=== PATIENT | female | born 1970 | race Caucasian/White ===

== ENCOUNTER → 2017-08-25 | Outpatient (CLI) | payer OTHER ==
--- NOTE | 2017-08-25 12:03 | WWHP ---
[facility] - HISTORY AND PHYSICAL DATE OF SERVICE: 08/25/2017 CHIEF COMPLAINT: The patient is here for her routine gynecologic exam and mammogram. HPI: This is a 47-year-old, G2, P2 with an LMP of 08/17/2017. The patient has been using condoms and abstinence for control. She is without gynecologic complaints. Her periods are regular every month. She states she is between primary care physicians since Dr. Clemons retired and she is requesting some screening labs. PAST MEDICAL HISTORY: Colon cancer 2002 and history of mildly elevated cholesterol. MEDICATIONS: None. ALLERGIES: No known drug allergies. PAST SURGICAL HISTORY: Colon resection 2002 for colon cancer and she has had multiple colonoscopies since then and her most recent one was in 2016. 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 SOCIAL HISTORY: She denies tobacco and drug use and has about 2 alcohol containing drinks per week. She has been with her fiance since approximately 2012 and lives with him. She works for a [employer] and travels a lot for this. FAMILY HISTORY: Father had atrial fibrillation and grandmother had breast cancer. REVIEW OF SYSTEMS: She has gained about 5 pounds over the last year. She denies respiratory, cardiac or GI problems. She has been feeling more tired than usual. PHYSICAL EXAM: Blood pressure 119/57, height 5 feet 8 inches, weight 186 pounds. BMI 28. Temperature 96.4, pulse 55. This is a well-developed, well-nourished white female who is alert and oriented x3, in no acute distress. HEENT is within normal limits. NECK: Supple without mass or thyromegaly. CHEST AND LUNGS: Clear to auscultation. HEART: Regular rate and rhythm. Breasts are without mass or discharge. Axillary exam is negative for adenopathy. BACK: Negative for CVA tenderness. ABDOMEN: Soft, nontender, without palpable masses. PELVIC EXAM: Normal external genitalia. Cervix and vagina appear normal. There is no evidence of prolapse. The uterus is mid position, nongravid size and nontender. There are no palpable adnexal masses or tenderness. Rectal exam is negative for mass or tenderness and is negative for occult blood. EXTREMITIES: Nontender. IMPRESSION: 1. A 47-year-old gynecologically healthy female with normal gynecologic exam. 2. History of colon cancer with no evidence of recurrence. PLAN: 1. Pap smear was deferred since she had a normal one last year. 2. Self breast examination was discussed. 3. Mammogram will be done today. 4. Screening blood tests will include fasting lipid profile, CBC, comprehensive Chem panel, and TSH. 5. Osteoporosis prevention was discussed. 6. She is declining any other control options at this time, but will let me know if she is interested in any other form of control. 7. She will return in one year. MMODL / IJN: [id number] /
[2017-08-25 12:28] LABS: CH 28.3; CHCM 31.1; HCT 41.6 % (34.0-46.0); HDW 2.57; HGB 12.9 gm/dL (11.4-16.0); Hypochromasia Slight; MCH 28.4 pg (25.0-35.0); MCV 91.5 fL (80.0-100.0); Mean Platelet Volume 7.6; RBC 4.54 m/uL (3.80-5.40); RDW 13.2 % (11.5-15.5); WBC 5.5 k/uL (3.8-10.6)
[2017-08-25 12:34] LABS: ALT 28 U/L (9-52); AST 20 U/L (14-36); Alkaline Phosphatase 62 U/L (38-126); Anion Gap 8 mmol/L; Blood Urea Nitrogen 10 mg/dL (7-17); Calcium 9.4 mg/dL (8.4-10.2); Carbon Dioxide 27 mmol/L (22-30); Chloride 104 mmol/L (98-107); Cholesterol 224 mg/dL (<200); Glucose 77 mg/dL (74-99); HDL Cholesterol 96 mg/dL (40-60); Non-African American GFR(MDRD) >60 (>60 ml/min/1.73 sqM); Potassium 4.2 mmol/L (3.5-5.1); Sodium 139 mmol/L (137-145); Total Bilirubin 0.3 mg/dL (0.2-1.3); Total Protein 6.6 g/dL (6.3-8.2)
--- NOTE | 2017-08-26 14:18 | MM ---
Reason for exam: screening (asymptomatic). Last mammogram was performed 1 year and 8 months ago. History: Patient has history of colon cancer at age 32. Family history of breast cancer in grandmother. Physical Findings: A clinical breast exam by your physician is recommended on an annual basis and results should be correlated with mammographic findings. MG 3D Screening Mammo W/Cad Bilateral CC and MLO view(s) were taken. Prior study comparison: December 16, 2015, bilateral MG screening mammo w CAD. October 30, 2014, bilateral MG screening mammo w CAD. The breast tissue is heterogeneously dense. This may lower the sensitivity of mammography. Finding: There is a 13 x 4 mm equal density (isodense), circumscribed round mass in the posterior middle position of the right breast seen on CC view. New finding since December 16, 2015 and October 30, 2014. ASSESSMENT: Incomplete: need additional imaging evaluation, BI-RAD 0 RECOMMENDATION: Special view mammogram and ultrasound of the right breast. [facility] will attempt to contact patient to return for supplemental views and ultrasound.
== END | disposition home or self-care (01) ==
LOC: WWCWWP 09:52
PROVIDERS: ATTEND Obstetrics & Gynecology
DX: Z12.31 Encounter for screening mammogram for malignant neoplasm of breast (principal); Z00.00 Encounter for general adult medical examination without abnormal findings; R53.83 Other fatigue
CPT/HCPCS: 80061; 80053; 84443; 85027; 77063; 36415; G0202

== ENCOUNTER → 2017-09-10 | Outpatient (CLI) | payer OTHER ==
--- NOTE | 2017-09-10 10:23 | MM ---
Reason for exam: additional evaluation requested from abnormal screening. Last mammogram was performed 1 month ago. History: Patient has history of colon cancer at age 32. Family history of breast cancer in grandmother. Physical Findings: Nurse did not find any significant physical abnormalities on exam. MG 3D Work Up W/Cad RT ML and spot compression CC view(s) were taken of the right breast. Prior study comparison: August 25, 2017, bilateral MG 3d screening mammo w/cad. December 16, 2015, bilateral MG screening mammo w CAD. The breast tissue is heterogeneously dense. This may lower the sensitivity of mammography. Nodular areas persists. Ultrasound is recommended. These results were verbally communicated with the patient and result sheet given to the patient on 09/10/17. ASSESSMENT: Incomplete: need additional imaging evaluation, BI-RAD 0 RECOMMENDATION: Ultrasound of the right breast.
--- NOTE | 2017-09-10 10:26 | USB ---
Reason for exam: additional evaluation requested from abnormal screening. History: Patient has history of colon cancer at age 32. Family history of breast cancer in grandmother. US Breast Workup Limited RT Right breast ultrasound demonstrates a 0.9 x 0.5 x 0.4cm mixed lesion at 10 o'clock, a 0.6 x 0.3 x 0.6cm mixed lesion at 8 o'clock and a 1.5 x 1.4 x 1.4cm solid lesion at 12 o'clock, CC upright. These results were verbally communicated with the patient and result sheet given to the patient on 09/10/17. ASSESSMENT: Suspicious, BI-RAD 4 RECOMMENDATION: Stereotactic core biopsy of the right breast. Called Dr. Crystal with mammographic findings and has scheduled an appointment for the patient for 09/13/17 at 4:[address] Harry. PRELIMINARY REPORT CALLED AND FAXED TO DR. HARRY ON 09/10/17.
== END ==
LOC: RADMAMWWP 07:16
PROVIDERS: ATTEND Obstetrics & Gynecology
DX: R92.8 Other abnormal and inconclusive findings on diagnostic imaging of breast (principal)
CPT/HCPCS: 76642; G0206; G0279

== ENCOUNTER 2017-12-04 13:12 | Emergency (ER) | payer BC, OTHER ==
[2017-12-04 13:17] VITALS: TEMP 97.8
--- NOTE | 2017-12-04 13:50 | ED ---
General Adult HPI - General Chief complaint: Syncope Stated complaint: Syncope Time Seen by Provider: 12/04/17 13:28 Source: patient, family, RN notes reviewed Mode of arrival: ambulatory Limitations: no limitations - History of Present Illness Initial comments: Patient is a pleasant 47-year-old female presenting to the emergency department following syncopal episode. Episode occurred last night while urinating. Patient denies any significant injury. No headache. Patient has had some sinus congestion recently. Patient has had several episodes of intermittent chest discomfort over the past couple of weeks, lasting several minutes. At times there is some radiation towards the back. Discomfort feels either sharp or pressure. At times there is associated dyspnea. No discomfort at this time. No specific discomfort last night. No history of previous syncopal episode. Patient does have a history of frequent travel with work. Patient also adds that her Apple watch recorded her heart rate at 167 last night. - Related Data Home Medications Medication Instructions Recorded Confirmed Dm/Acetaminophen/Doxylamine [Vicks 30 ml PO ONCE PRN 12/04/17 12/04/17 Nyquil Cold & Flu Liquid] Allergies Allergy/AdvReac Type Severity Reaction Status Date / Time No Known Allergies Allergy Verified 12/04/17 13:46 Review of Systems ROS Statement: Those systems with pertinent positive or pertinent negative responses have been documented in the HPI. ROS Other: All systems not noted in ROS Statement are negative. Constitutional: Denies: fever Eyes: Denies: eye pain ENT: Denies: ear pain Respiratory: Denies: cough Cardiovascular: Denies: palpitations Endocrine: Denies: fatigue Gastrointestinal: Denies: abdominal pain Genitourinary: Denies: dysuria Musculoskeletal: Denies: back pain Skin: Denies: rash Neurological: Denies: weakness Past Medical History Past Medical History: Cancer Additional Past Medical History / Comment(s): HX OF COLON CANCER (2002). History of Any Multi-Drug Resistant Organisms: None Reported Past Surgical History: Bowel Resection Past Anesthesia/Blood Transfusion Reactions: No Reported Reaction Past Psychological History: No Psychological Hx Reported Smoking Status: Never smoker Past Alcohol Use History: Occasional Past Drug Use History: None Reported - Past Family History Mother Family Medical History: No Reported History General Exam Limitations: no limitations General appearance: alert, in no apparent distress Head exam: Present: atraumatic Eye exam: Present: normal appearance, PERRL ENT exam: Present: normal oropharynx Neck exam: Present: normal inspection. Absent: meningismus Respiratory exam: Present: normal lung sounds bilaterally Cardiovascular Exam: Present: regular rate, normal rhythm GI/Abdominal exam: Present: soft. Absent: tenderness Extremities exam: Present: normal inspection. Absent: pedal edema, calf tenderness Neurological exam: Present: alert, oriented X3, CN II-XII intact. Absent: motor sensory deficit Expanded Patient oriented to: Present: person, place, time Speech: Present: fluid speech Cranial nerves: EOM's Intact: Normal Sensory exam: Upper Extremity Light Touch: Normal, Lower Extremity Light Touch: Normal Motor strength exam: RUE: 5, LUE: 5, RLE: 5, LLE: 5 Eye Response: (4) open spontaneously Motor Response: (6) obeys commands Verbal Response: (5) oriented Psychiatric exam: Present: normal affect, normal mood Skin exam: Present: normal color Course Vital Signs 12/04/17 13:14 Temperature 97.8 F Pulse Rate 63 Respiratory 20 Rate Blood Pressure 133/73 O2 Sat by Pulse 100 Oximetry - Reevaluation(s) Reevaluation #1: 12/04/17 15:41 Patient reevaluated. Patient and family updated on results and recommendation for admission. Long discussion had with patient and family regarding results as well as recommendation reasons. This includes the fact that all causes of syncope have not been ruled out at this time including patient's chest pain. They are made aware of limitations of testing in the emergency department at this time. They're made aware that heart attack and arrhythmia have not been ruled out at this time. They are specifically made aware that there is concern for arrhythmia. They are recommended admission for monitoring and further evaluation including repeat testing, repeat blood work, echo, cardiology evaluation. Patient does demonstrate medical decision making. They are now having further discussion regarding likely leaving AGAINST MEDICAL ADVICE. EKG Findings - EKG Comments: EKG Findings:: Normal sinus rhythm 63. DE 162. QRS 88. QT 392. QTC 41. Normal axis. Normal QRS. No acute ST change. Medical Decision Making - Lab Data Result diagrams: 12/04/17 14:16 12/04/17 14:16 Lab Results 12/04/17 12/04/17 12/04/17 Range/Units 14:16 14:16 14:16 WBC 5.6 (3.8-10.6) k/uL RBC 4.59 (3.80-5.40) m/uL Hgb 12.4 (11.4-16.0) gm/dL Hct 40.6 (34.0-46.0) % MCV 88.4 (80.0-100.0) fL MCH 27.1 (25.0-35.0) pg MCHC 30.6 L (31.0-37.0) g/dL RDW 13.6 (11.5-15.5) % Plt Count 247 (150-450) k/uL Neutrophils % 62 % Lymphocytes % 26 % Monocytes % 7 % Eosinophils % 2 % Basophils % 0 % Neutrophils # 3.5 (1.3-7.7) k/uL Lymphocytes # 1.5 (1.0-4.8) k/uL Monocytes # 0.4 (0-1.0) k/uL Eosinophils # 0.1 (0-0.7) k/uL Basophils # 0.0 (0-0.2) k/uL PT (9.0-12.0) sec INR (<1.2) APTT (22.0-30.0) sec D-Dimer (<0.60) mg/L FEU Sodium 140 (137-145) mmol/L Potassium 4.2 (3.5-5.1) mmol/L Chloride 104 (98-107) mmol/L Carbon Dioxide 28 (22-30) mmol/L Anion Gap 8 mmol/L BUN 13 (7-17) mg/dL Creatinine 0.70 (0.52-1.04) mg/dL Est GFR (MDRD) Af Amer >60 (>60 ml/min/1.73 sqM) Est GFR (MDRD) Non-Af >60 (>60 ml/min/1.73 sqM) Glucose 85 (74-99) mg/dL Calcium 10.2 (8.4-10.2) mg/dL Magnesium 1.8 (1.6-2.3) mg/dL Total Bilirubin 0.2 (0.2-1.3) mg/dL AST 17 (14-36) U/L ALT 21 (9-52) U/L Alkaline Phosphatase 59 (38-126) U/L Total Creatine Kinase 46 (30-135) U/L CK-MB (CK-2) <0.2 (0.0-2.4) ng/mL CK-MB (CK-2) Rel Index Troponin I <0.012 (0.000-0.034) ng/mL Total Protein 6.6 (6.3-8.2) g/dL Albumin 3.9 (3.5-5.0) g/dL Urine Color Urine Appearance (Clear) Urine pH (5.0-8.0) Ur Specific Rowe (1.001-1.035) Urine Protein (Negative) Urine Glucose (UA) (Negative) Urine Ketones (Negative) Urine Blood (Negative) Urine Nitrite (Negative) Urine Bilirubin (Negative) Urine Urobilinogen (<2.0) mg/dL Ur Leukocyte Esterase (Negative) Urine RBC (0-5) /hpf Urine WBC (0-5) /hpf Ur Squamous Epith Cells (0-4) /hpf Amorphous Sediment (None) /hpf Urine Bacteria (None) /hpf Urine Mucus (None) /hpf 12/04/17 12/04/17 Range/Units 14:16 14:26 WBC (3.8-10.6) k/uL RBC (3.80-5.40) m/uL Hgb (11.4-16.0) gm/dL Hct (34.0-46.0) % MCV (80.0-100.0) fL MCH (25.0-35.0) pg MCHC (31.0-37.0) g/dL RDW (11.5-15.5) % Plt Count (150-450) k/uL Neutrophils % % Lymphocytes % % Monocytes % % Eosinophils % % Basophils % % Neutrophils # (1.3-7.7) k/uL Lymphocytes # (1.0-4.8) k/uL Monocytes # (0-1.0) k/uL Eosinophils # (0-0.7) k/uL Basophils # (0-0.2) k/uL PT 9.8 (9.0-12.0) sec INR 1.0 (<1.2) APTT 21.0 L (22.0-30.0) sec D-Dimer 0.25 (<0.60) mg/L FEU Sodium (137-145) mmol/L Potassium (3.5-5.1) mmol/L Chloride (98-107) mmol/L Carbon Dioxide (22-30) mmol/L Anion Gap mmol/L BUN (7-17) mg/dL Creatinine (0.52-1.04) mg/dL Est GFR (MDRD) Af Amer (>60 ml/min/1.73 sqM) Est GFR (MDRD) Non-Af (>60 ml/min/1.73 sqM) Glucose (74-99) mg/dL Calcium (8.4-10.2) mg/dL Magnesium (1.6-2.3) mg/dL Total Bilirubin (0.2-1.3) mg/dL AST (14-36) U/L ALT (9-52) U/L Alkaline Phosphatase (38-126) U/L Total Creatine Kinase (30-135) U/L CK-MB (CK-2) (0.0-2.4) ng/mL CK-MB (CK-2) Rel Index Troponin I (0.000-0.034) ng/mL Total Protein (6.3-8.2) g/dL Albumin (3.5-5.0) g/dL Urine Color Yellow Urine Appearance Turbid H (Clear) Urine pH 7.0 (5.0-8.0) Ur Specific Rowe 1.012 (1.001-1.035) Urine Protein Negative (Negative) Urine Glucose (UA) Negative (Negative) Urine Ketones Trace H (Negative) Urine Blood Negative (Negative) Urine Nitrite Negative (Negative) Urine Bilirubin Negative (Negative) Urine Urobilinogen <2.0 (<2.0) mg/dL Ur Leukocyte Esterase Small H (Negative) Urine RBC 3 (0-5) /hpf Urine WBC 3 (0-5) /hpf Ur Squamous Epith Cells 4 (0-4) /hpf Amorphous Sediment Rare H (None) /hpf Urine Bacteria Few H (None) /hpf Urine Mucus Rare H (None) /hpf - Radiology Data Radiology results: report reviewed (Computed tomography scan of the brain shows no acute process.), image reviewed (Chest x-ray shows no acute process) Disposition Clinical Impression: Syncope Disposition: Left Against Medical Advice Instructions: Syncope (ED) Additional Instructions: Please follow-up with primary care physician and cardiology on Wednesday. Return for chest pain, difficulty breathing, passing out, worsening or change in symptoms or any other concerns. You are leaving AGAINST MEDICAL ADVICE. Referrals: Itzel Rodriguez MD [STAFF PHYSICIAN] - 1-2 days Aicha Toro MD [STAFF PHYSICIAN] - 1-2 days Susana Wise MD [STAFF PHYSICIAN] - 1-2 days Time of Disposition: 15:50
[2017-12-04 14:30] LABS: Basophils % (A) 0 %; Eosinophils # (A) 0.1 k/uL (0-0.7); Eosinophils % (A) 2 %; HCT 40.6 % (34.0-46.0); HGB 12.4 gm/dL (11.4-16.0); Lymphocytes # (A) 1.5 k/uL (1.0-4.8); Lymphocytes % (A) 26 %; MCH 27.1 pg (25.0-35.0); MCHC 30.6 g/dL (31.0-37.0); MCV 88.4 fL (80.0-100.0); Mean Platelet Volume 7.3; Monocytes # (A) 0.4 k/uL (0-1.0); Monocytes % (A) 7 %; Neutrophils # (A) 3.5 k/uL (1.3-7.7); Neutrophils % (A) 62 %; Platelet Count 247 k/uL (150-450); RBC 4.59 m/uL (3.80-5.40); RDW 13.6 % (11.5-15.5); WBC 5.6 k/uL (3.8-10.6)
[2017-12-04 14:40] LABS: Amorphous Sediment,Urine Rare /hpf; Appearance,Urine Turbid (Clear); Bacteria,Urine Few /hpf; Bilirubin,Urine Negative (Negative); Blood,Urine Negative (Negative); Color,Urine Yellow; Glucose,Urine (UA) Negative (Negative); Ketones,Urine Trace (Negative); Leukocyte Esterase,Urine Small (Negative); Mucus,Urine Rare /hpf; Nitrite,Urine Negative (Negative); Protein,Urine Negative (Negative); RBC,Urine 3 /hpf (0-5); Specific Gravity,Urine 1.012 (1.001-1.035); Squamous Epithelial Cell,Urine 4 /hpf (0-4); Urobilinogen,Urine <2.0 mg/dL (<2.0); WBC,Urine 3 /hpf (0-5)
[2017-12-04 14:45] LABS: ALT 21 U/L (9-52); AST 17 U/L (14-36); Albumin 3.9 g/dL (3.5-5.0); Alkaline Phosphatase 59 U/L (38-126); Anion Gap 8 mmol/L; Blood Urea Nitrogen 13 mg/dL (7-17); Calcium 10.2 mg/dL (8.4-10.2); Carbon Dioxide 28 mmol/L (22-30); Chloride 104 mmol/L (98-107); Glucose 85 mg/dL (74-99); Magnesium 1.8 mg/dL (1.6-2.3); Potassium 4.2 mmol/L (3.5-5.1); Sodium 140 mmol/L (137-145); Total Bilirubin 0.2 mg/dL (0.2-1.3); Total Protein 6.6 g/dL (6.3-8.2)
--- NOTE | 2017-12-04 14:49 | CT ---
EXAMINATION TYPE: CT brain wo con DATE OF EXAM: 12/04/2017 COMPARISON: NONE HISTORY: Syncope CT DLP: 943.80 mGycm. Automated Exposure Control for Dose Reduction was Utilized. TECHNIQUE: CT scan of the head is performed without contrast. FINDINGS: There is no acute intracranial hemorrhage, mass effect, or midline shift identified. The ventricles and sulci are within normal limits in size. Rae-white matter differentiation is maintai kimani. The globes are intact and the visualized sinuses are clear. Patchy soft tissue density bilateral external auditory canals is felt to reflect cerumen. IMPRESSION: No acute intracranial hemorrhage, mass effect, or midline shift is seen.
--- NOTE | 2017-12-04 14:49 | XR ---
EXAMINATION TYPE: XR chest 2V DATE OF EXAM: 12/04/2017 COMPARISON: NONE HISTORY: Syncope and weakness. TECHNIQUE: Frontal and lateral views of the chest are obtained. FINDINGS: There is no focal air space opacity, pleural effusion, or pneumothorax seen. The cardiac silhouette size is within normal limits. The osseous structures are intact. IMPRESSION: No acute cardiopulmonary process.
[2017-12-04 14:50] LABS: Creatine Kinase 46 U/L (30-135)
[2017-12-04 14:51] LABS: D-Dimer 0.25 mg/L FEU (<0.60); Prothrombin Time 9.8 sec (9.0-12.0)
[2017-12-04 15:03] LABS: Creatine Kinase MB <0.2 ng/mL (0.0-2.4); Troponin I <0.012 ng/mL (0.000-0.034)
[2017-12-04 16:04] VITALS: BP 116/56; PULSE 80; RESP 18
== END 2017-12-04 16:04 | disposition left against medical advice (07) ==
LOC: EC 13:12
DX: R55 Syncope and collapse (principal); R09.81 Nasal congestion; R07.89 Other chest pain; M54.9 Dorsalgia, unspecified; R06.00 Dyspnea, unspecified; Z85.038 Personal history of other malignant neoplasm of large intestine; Z90.49 Acquired absence of other specified parts of digestive tract
CPT/HCPCS: 36415; 70450; 71046; 80053; 81001; 82550; 82553; 83735; 84484; 85025; 85379; 85610; 85730; 93005; 99284

== ENCOUNTER → 2018-11-23 | Outpatient (CLI) | payer BC ==
[2018-11-23 08:04] VITALS: BP 130/56; PULSE 70; RESP 18; TEMP 97.8; BMI 28.1
--- NOTE | 2018-11-23 08:48 | P.HPOB ---
History of Present Illness H&P Date: 11/23/18 Chief Complaint: The patient is here for her routine gynecologic exam and mammogram. This is a 48-year-old with an LMP of 11/02/2018. The patient states her menstrual periods seem to be getting slightly closer about every 3 1/2 weeks. She is otherwise without complaints. Review of Systems The patient's weight has been stable over the last year. She denies respiratory , cardiac, or G.I. problems. Past Medical History Past Medical History: Cancer (Colon cancer), Hyperlipidemia (Mild) Additional Past Medical History / Comment(s): HX OF COLON CANCER (2002). Carotid stenosis. 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 History of Any Multi-Drug Resistant Organisms: None Reported Past Surgical History: Bowel Resection Additional Past Surgical History / Comment(s): Colonoscopy 2015(multiple in past ) Past Anesthesia/Blood Transfusion Reactions: No Reported Reaction Past Psychological History: No Psychological Hx Reported Smoking Status: Never smoker Past Alcohol Use History: Occasional (4-6 per week) Past Drug Use History: None Reported Additional History: She is has been with her fianc since 2012 and lives with him. She works for a [employer] and travels frequently. - Past Family History Mother Family Medical History: No Reported History Additional Family Medical History / Comment(s): Grandmother had breast cancer. Father Family Medical History: AFIB Medications and Allergies Home Medications Medication Instructions Recorded Confirmed Type No Known Home Medications 11/23/18 11/23/18 History Allergies Allergy/AdvReac Type Severity Reaction Status Date / Time No Known Allergies Allergy Verified 11/23/18 07:50 Exam Vital Signs Temp Pulse Resp BP Pulse Ox 11/23/18 08:00 97.8 F 70 18 130/56 100 Intake and Output 11/22/18 11/23/18 11/23/18 22:59 06:59 14:59 Other: Weight 83.915 kg Height 5'8" weight 185 pounds, BMI 28.1. This is a well-developed well-nourished white female who is alert and oriented times 3 in no acute distress. HEENT: Within normal limits. NECK: Supple without mass or thyromegaly. There are no carotid bruits auscultated. CHEST AND LUNGS: Clear to auscultation. HEART: Regular rate and rhythm. BREASTS: Are without mass or discharge. AXILLARY EXAM: Negative for adenopathy. BACK: Negative for CVA tenderness. ABDOMEN: Soft, nontender, without palpable masses. PELVIC EXAM: Normal external genitalia. Cervix and vagina appear normal. There is no unusual discharge. There is no evidence of prolapse. The uterus is midposition, nongravid size and nontender. There are no palpable adnexal masses or tenderness. RECTAL EXAM: negative for mass or tenderness and is negative for occult blood. EXTREMITIES: Nontender. IMPRESSION: 1. 48 year old premenopausal female with normal gynecologic exam. 2. History of colon cancer with no evidence of recurrence. 3. Slight increase in menstrual frequency. 4. Previous abnormal right mammogram in 2017 which did require a core biopsy which was benign. PLAN: 1. Pap smear was performed. 2. Self breast awareness was discussed with the patient. 3. Bilateral diagnostic mammogram will be done today. She did not have the follow-up right-sided mammogram 6 months after her biopsy. 4. Osteoporosis prevention was discussed. I have stressed the importance of adequate calcium, vitamin D and regular exercise. Recommended amounts of calcium and vitamin D were also discussed. 5. She will follow-up with her primary care physician for routine blood work including cholesterol testing. 6. She will keep it menstrual calendar and return if she is having menstrual problems. 7. She will return in one year.
--- NOTE | 2018-11-23 09:18 | MM ---
Reason for exam: additional evaluation requested from prior study. Last mammogram was performed 1 year and 2 months ago. History: Patient has history of colon cancer at age 32. Family history of breast cancer in grandmother. Benign MG stereo VAD BX RT of the right breast, September 16, 2017. Physical Findings: Nurse did not find any significant physical abnormalities on exam. MG 3D Diag Mammo W/Cad DAVID Bilateral CC and MLO view(s) were taken. Prior study comparison: September 10, 2017, right breast MG 3d work up w/cad RT. August 25, 2017, bilateral MG 3d screening mammo w/cad. The breast tissue is heterogeneously dense. This may lower the sensitivity of mammography. Previous mammotome biopsy in the right rbeast. Stable nodule right breast. These results were verbally communicated with the patient and result sheet given to the patient on 11/23/18. ASSESSMENT: Benign, BI-RAD 2 RECOMMENDATION: Routine screening mammogram of both breasts in 1 year.
== END | disposition home or self-care (01) ==
LOC: WWCWWP 07:48
PROVIDERS: ATTEND Obstetrics & Gynecology
DX: R92.8 Other abnormal and inconclusive findings on diagnostic imaging of breast (principal)
CPT/HCPCS: 77062; 77066

== ENCOUNTER 2019-09-29 09:04 | Day surgery (SDC) | payer BC ==
[2019-09-28 09:36] VITALS: BMI 29.6
[~2019-09-29 09:04] MED LIST: LACTATED RINGERS 1,000 ML IV SCH
[2019-09-29 09:27] VITALS: TEMP 97.8
[2019-09-29] MEDS ORDERED: LACTATED RINGERS 1,000 ML IV ONE (09:27)
[2019-09-29] MEDS ORDERED: LIDOCAINE 1% 20 ML VIAL (10MG/ML) FOR IV START INTRADERMA ONE (09:27)
[2019-09-29] MEDS ORDERED: LIDOCAINE 1% INJ 10MG/ML (20 ML MDV) ONE (09:57)
[2019-09-29] MEDS ORDERED: PROPOFOL 10 MG/ML 20 ML VIAL IV ONE (09:57)
--- NOTE | 2019-09-29 10:18 | P.PCN ---
Date of Procedure: 09/29/19 Procedure(s) Performed: BRIEF HISTORY: Patient is a 49-year-old pleasant white female scheduled for an elective colonoscopy as a part of surveillance of prior history of colon cancer diagnosed at age 31. Patient underwent left hemicolectomy and has been in remission. Last colonoscopy by Dr. Denton was 3 years ago. She is scheduled for a surveillance colonoscopy today. PROCEDURE PERFORMED: Colonoscopy with snare polyp rectum PREOPERATIVE DIAGNOSIS: history of colon cancer diagnosed at age 31. IV sedation per Anesthesia. PROCEDURE: After informed consent was obtained, the patient, was brought into the endoscopy unit. IV sedation was administered by Anesthesia under continuous monitoring. Digital rectal examination was normal. Initially the Olympus CF-160 flexible video colonoscope was then inserted in the rectum, gradually advanced into the cecum without any difficulty. Careful examination was performed as the scope was gradually being withdrawn. Ileocecal valve and the appendiceal orifice were visualized and appeared normal. Prep was excellent. Mucosa of the cecum, appeared normal. In the ascending colon there was a 1 m flat polyp that was removed by snare polypectomy. Rest of the ascending colon, transverse colon, sigmoid colon, and rectum appeared normal. Anastomosis was located at 25 mm from the anal verge that appeared normal.Retroflexion was performed in the rectum and no lesions were seen. The patient tolerated the procedure well. IMPRESSION: 1 cm flat polyp in ascending colon status post polypectomy. Rest of the colon appeared normal RECOMMENDATIONS: Findings of this examination were discussed with the patient as well as his family her family. She was advised to follow with the biopsy results and have a repeat colonoscopy in 2-3 years biopsy results..
[2019-09-29 10:23] VITALS: RESP 16
[2019-09-29 10:38] VITALS: BP 115/59; PULSE 57
== END 2019-09-29 11:00 | disposition home or self-care (01) ==
LOC: ORWHC2ENDO 09:04
PROVIDERS: ATTEND Internal Medicine Gastroenterology
DX: Z12.11 Encounter for screening for malignant neoplasm of colon (principal); K63.5 Polyp of colon; K52.9 Noninfective gastroenteritis and colitis, unspecified; Z85.038 Personal history of other malignant neoplasm of large intestine; Z90.49 Acquired absence of other specified parts of digestive tract
CPT/HCPCS: 81025; 88305; 45385; J2001; J2704

== ENCOUNTER 2019-10-13 06:27 | Day surgery (SDC) | payer BC ==
[2019-10-05 16:45] VITALS: BMI 28.8
--- NOTE | 2019-10-12 07:32 | P.HPOB ---
History of Present Illness H&P Date: 10/12/19 Chief Complaint: Menorrhagia This patient is a pleasant 49 yr female who was referred to my office by Dr. Westbrook for treatment of menorrhagia. Patient states that for a long period of time she has had regular, long menses that are heavy. 2-3 days of each cycle she bleeds heavy enough to require double protection. Her regular swimming pool servicer is Dr. Crystal but he does not do surgical procedures. Ultrasound evaluation is negative. She is not sexually active. She is requesting endometrial ablation for treatment. Review of Systems Genitourinary: Reports menorrhagia Menstruation: Reports as per HPI, Reports period heavy Past Medical History Past Medical History: Cancer, Hyperlipidemia Additional Past Medical History / Comment(s): HX OF COLON CANCER (2002)no chemo or radiation,no current rx for hyper lipidemia, Carotid stenosis. 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 History of Any Multi-Drug Resistant Organisms: None Reported Past Surgical History: Bowel Resection Additional Past Surgical History / Comment(s): Colonoscopy 2015(multiple in past) Past Anesthesia/Blood Transfusion Reactions: No Reported Reaction Smoking Status: Never smoker - Past Family History Mother Family Medical History: No Reported History Additional Family Medical History / Comment(s): Grandmother had breast cancer. Father Family Medical History: AFIB Medications and Allergies Home Medications Medication Instructions Recorded Confirmed Type Ascorbic Acid [Vitamin C] 500 mg PO DAILY 10/05/19 10/05/19 History Aspirin 81 mg PO DAILY 10/05/19 10/05/19 History Cyanocobalamin [Vitamin B-12] 500 mcg PO DAILY 10/05/19 10/05/19 History Vitamin E (Dl,Tocopheryl Acet) 400 unit PO DAILY 10/05/19 10/05/19 History [Vitamin E] Allergies Allergy/AdvReac Type Severity Reaction Status Date / Time No Known Allergies Allergy Verified 10/05/19 16:15 Exam - OBG Physical Exam Abdomen: bowel sounds normal, no diffuse tenderness, no bruit present, no guarding noted, no hepatomegaly, no splenomegaly, no mass Vulva: both: normal Vagina: normal moisture, no discharge Cervix: no lesion, no discharge Uterus: normal size, normal contour Adnexa: both: normal Results Transvaginal ultrasound on 10/02 was normal. Assessment and Plan Assessment: This is a pleasant 49 yr old female with longstanding menorrhagia and negative evaluation requesting endometrial ablation. Plan is hysteroscopy, D&C, and Novasure endometrial ablation. I have had a long discussion with Inez in regards to this surgery and risks: infection, bleeding, possible uterine perforation and/or thermal injury. All of her questions were answered and a written consent obtained. (1) Menorrhagia with regular cycle Status: Chronic Code(s): N92.0 - EXCESSIVE AND FREQUENT MENSTRUATION WITH REGULAR CYCLE SNOMED Code(s): 103591049
[~2019-10-13 06:27] MED LIST changes: +DEXAMETHASONE SOD PHOSPHATE 10 MG/ML 1 ML VIAL IV ONE; +HYDROmorphone 0.5 MG/0.5 ML SYRINGE IVP PRN; +MIDAZOLAM 2 MG/2 ML VIAL IV PRN; +ONDANSETRON 4 MG/2 ML VIAL IVP ONE; +Pre Op ABX Message 1 EACH MISC MISCELLANE ONE; +SCOPOLAMINE 1.5MG/72HR PATCH TRANSDERM ONE
[2019-10-13] MEDS ORDERED: LIDOCAINE 1% 20 ML VIAL (10MG/ML) FOR IV START INTRADERMA ONE (06:50)
[2019-10-13] MEDS ORDERED: LIDOCAINE 1% INJ 10MG/ML (20 ML MDV) ONE (07:18)
[2019-10-13] MEDS ORDERED: PROPOFOL 10 MG/ML 20 ML VIAL IV ONE (07:18)
[2019-10-13] MEDS ORDERED: fentaNYL (PF) 50 MCG/ML 2 ML AMP ONE (07:18)
[2019-10-13] MEDS ORDERED: MIDAZOLAM 2 MG/2 ML VIAL ONE (07:18)
[2019-10-13] MEDS ORDERED: KETOROLAC 30 MG/ML 1 ML VIAL ONE (07:18)
[2019-10-13 08:01] VITALS: TEMP 96.8
--- NOTE | 2019-10-13 08:01 | P.OP ---
Date of Procedure: 10/13/19 Preoperative Diagnosis: Menorrhagia Postoperative Diagnosis: Same Procedure(s) Performed: #1: Hysteroscopy. #2: Dilation and curettage. #3: NovaSure endometrial ablation Anesthesia: MAC Surgeon: Felice Good Estimated Blood Loss (ml): 5 Urine output (ml): 20 Pathology: other (Endometrial curettings) Condition: stable Disposition: PACU Indications for Procedure: Please see dictated H&P for intimate details of this patient's admission. Brief summary this is a pleasant 49-year-old multigravida patient with long-standing menorrhagia who is requesting NovaSure endometrial ablation for treatment. Patient I discussed the surgery and risks including risks of infection, bleeding, possible uterine perforation, and/or thermal injury. All the patient's questions are answered written consent is obtained. Operative Findings: This patient normal. Endometrial cavity Description of Procedure: This patient is taken to the operating room where she is laid in the supine position. She subsequently undergoes general mask anesthesia without incident. With an adequate level of anesthesia she's placed in the dorsal lithotomy position. She has a vaginal perineal prep and drape. Weighted speculum was placed in the posterior vagina and the anterior lip of the cervix was grabbed with an Allis clamp. The bladder is drained for 20 mL of clear urine. The uterus is then sounded to 9 cm. Gentle dilation is then done to allow the hysteroscope easily uterine cavity. Using saline solution hysteroscopy is performed and the uterine cavity appears normal was measured a length of 6.0 cm. Hysteroscope was then removed. Cervix dilated gently more to allow a small curette easily uterine cavity. A gentle but thorough 4 quadrant curettage is then done. With this done the NovaSure device is then opened appears to be intact. It is set at a length of 6.0 cm is then seated in place and opens up to a width of 4.5 cm. It passes the cavity integrity test is then enabled at 149 W setting for 137 seconds. With this done the NovaSure device is then removed it appears to be intact. Hysteroscopy again is performed uterine cavity appears to be completely ablated up to the endocervix. With this done the procedure is ended. The Allis clamp and weighted speculums were removed. All counts are correct 3. There are no complications. Patient is awakened from anesthesia and taken recovery in satisfactory condition.
[2019-10-13 08:36] VITALS: RESP 16
[2019-10-13 08:50] VITALS: BP 135/81; PULSE 56
== END 2019-10-13 09:06 | disposition home or self-care (01) ==
LOC: OR 06:27
PROVIDERS: ATTEND Obstetrics & Gynecology
DX: N92.0 Excessive and frequent menstruation with regular cycle (principal); E78.5 Hyperlipidemia, unspecified; I65.29 Occlusion and stenosis of unspecified carotid artery; Z85.038 Personal history of other malignant neoplasm of large intestine; Z79.82 Long term (current) use of aspirin; Z90.49 Acquired absence of other specified parts of digestive tract; Z80.3 Family history of malignant neoplasm of breast; Z82.49 Family history of ischemic heart disease and other diseases of the circulatory system
CPT/HCPCS: 81025; 58563; J2250; J1100; J2405; J2001; J3010; J1885; J2704; 88305

== ENCOUNTER → 2020-04-24 | Outpatient (CLI) | payer OTHER ==
[2020-04-24 10:57] VITALS: BP 102/60; PULSE 51; RESP 16; TEMP 98
--- NOTE | 2020-04-24 11:53 | P.HPOB ---
History of Present Illness H&P Date: 04/24/20 Chief Complaint: The patient is here for her routine gynecologic exam and ma mmogram. This is a 48-year-old with an LMP of October 2019. She is status post endometrial ablation in October 2019 and has been amenorrheic since then. She denies any hot flashes. She is without gynecologic complaints. Pap smear done on 11/23/2018 which showed ASCUS and had negative high-risk HPV testing. Review of Systems The patient has lost 23 pounds over the last year. She has been working hard to lose weight and has done this with diet and exercise. She denies respiratory, cardiac, or G.I. problems. Past Medical History Past Medical History: Cancer, Hyperlipidemia Additional Past Medical History / Comment(s): HX OF COLON CANCER (2002). Carotid stenosis. 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 History of Any Multi-Drug Resistant Organisms: None Reported Past Surgical History: Bowel Resection, Uterine Ablation Additional Past Surgical History / Comment(s): Colonoscopy 2015(multiple in past). Endometrial ablation in 2019. Past Anesthesia/Blood Transfusion Reactions: No Reported Reaction Past Psychological History: No Psychological Hx Reported Smoking Status: Never smoker Past Alcohol Use History: Occasional (1-2 per week) Past Drug Use History: None Reported Additional History: She is . And has been with her boyfriend since 2012. They live together. She currently is unemployed and previously worked for a [employer]. - Past Family History Mother Family Medical History: No Reported History Additional Family Medical History / Comment(s): Grandmother had breast cancer. Father Family Medical History: AFIB Medications and Allergies Home Medications Medication Instructions Recorded Confirmed Type Vit C/Ascorb Sod/Multivit-Min 1,000 mg PO DAILY 04/24/20 04/24/20 History [Emergen-C 500 mg Chewable Tab] Allergies Allergy/AdvReac Type Severity Reaction Status Date / Time No Known Allergies Allergy Verified 04/24/20 10:48 Exam Vital Signs Temp Pulse Resp BP Pulse Ox 04/24/20 10:54 98.0 F 51 L 16 102/60 98 Intake and Output 04/23/20 04/24/20 04/24/20 22:59 06:59 14:59 Other: Weight 73.482 kg Height 5 feet 8 inches, weight 162 pounds, BMI 24.6. This is a well-developed well-nourished white, very chaudhry female who is alert and oriented times 3 in no acute distress. HEENT: Within normal limits. NECK: Supple without mass or thyromegaly. CHEST AND LUNGS: Clear to auscultation. HEART: Regular rate and rhythm. BREASTS: Are without mass or discharge. There is a benign-appearing mole on the right areola measuring approximately 3 mm with regular borders. The patient states it is been there for many years and has not changed. AXILLARY EXAM: Negative for adenopathy. BACK: Negative for CVA tenderness. ABDOMEN: Soft, nontender, without palpable masses. PELVIC EXAM: Normal external genitalia. Cervix and vagina appear normal. There is no unusual discharge. There is no evidence of prolapse. The uterus is midposition, nongravid size and nontender. There are no palpable adnexal masses or tenderness. RECTAL EXAM: Rectovaginal exam is negative for mass or tenderness and is negative for occult blood. EXTREMITIES: Nontender. IMPRESSION: 1. 50-year-old female with normal gynecologic exam. 2. Amenorrhea following endometrial ablation in October 2019. 3. Previous ASCUS Pap smear on 11/23/2018 with negative high-risk HPV testing. PLAN: 1. Pap smear was deferred. Co-testing will be performed in one year. 2. Self breast awareness was discussed with the patient. She was instructed to watch the mole on the right areola or any changes. She was instructed to call if there are changes. 3. Screening mammogram will be done today. 4. Osteoporosis prevention was discussed. I have stressed the importance of adequate calcium, vitamin D and regular exercise. Recommended amounts of calcium and vitamin D were also discussed. 5. She was advised to return in one year for her annual well woman exam.
--- NOTE | 2020-04-26 08:59 | MM ---
Reason for exam: screening (asymptomatic). Last mammogram was performed 1 year and 5 months ago. History: Patient has history of colon cancer at age 32. Family history of breast cancer in grandmother. Benign MG stereo VAD BX RT of the right breast, September 16, 2017. Physical Findings: A clinical breast exam by your physician is recommended on an annual basis and results should be correlated with mammographic findings. MG 3D Screening Mammo W/Cad Bilateral CC and MLO view(s) were taken. Prior study comparison: November 23, 2018, bilateral MG 3d diag mammo w/cad DAVID. September 10, 2017, right breast MG 3d work up w/cad RT. The breast tissue is heterogeneously dense. This may lower the sensitivity of mammography. Previous mammotome biopsy in the right breast. There is chronic nodularity in the right breast. No significant changes when compared with prior studies. ASSESSMENT: Benign, BI-RAD 2 RECOMMENDATION: Routine screening mammogram of both breasts in 1 year.
== END | disposition home or self-care (01) ==
LOC: WWCWWP 10:37
PROVIDERS: ATTEND Obstetrics & Gynecology
DX: Z12.31 Encounter for screening mammogram for malignant neoplasm of breast (principal)
CPT/HCPCS: 77063; 77067

== ENCOUNTER → 2021-07-01 | Outpatient (CLI) | payer BC ==
[2021-07-01 16:31] VITALS: BP 117/61; PULSE 52; RESP 12; TEMP 98
--- NOTE | 2021-07-01 17:18 | P.HPOB ---
History of Present Illness H&P Date: 07/01/21 Chief Complaint: The patient is here for her routine gynecologic exam and ma mmogram. This is a 51-year-old with an LMP of October 2019. The patient is status post endometrial ablation in October 2019 and she has been amenorrheic since then. She recently has developed hot flashes about 1-2 months ago. She states the hot flashes are occurring during the day and at night. The hot flashes at night seem to be improving. She is otherwise without complaints. Her last Pap smear done on 11/23/2018 showed ASCUS with negative high-risk HPV testing. Review of Systems The patient has gained 13 pounds over the last year. This was after she had lost 23 pounds previous year. She denies respiratory, cardiac, or G.I. problems. Past Medical History Past Medical History: Cancer, Hyperlipidemia Additional Past Medical History / Comment(s): HX OF COLON CANCER (2002). Carotid stenosis. 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 History of Any Multi-Drug Resistant Organisms: None Reported Past Surgical History: Bowel Resection, Uterine Ablation Additional Past Surgical History / Comment(s): Colonoscopy 2018(next after 3yr). Endometrial ablation in 2019. Past Anesthesia/Blood Transfusion Reactions: No Reported Reaction Past Psychological History: No Psychological Hx Reported Smoking Status: Never smoker Past Alcohol Use History: Occasional (0-4 per week) Past Drug Use History: None Reported Additional History: She is . She has been with her boyfriend since 2012 and they live together. 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 - Past Family History Mother Family Medical History: No Reported History Additional Family Medical History / Comment(s): Grandmother had breast cancer. Father Family Medical History: AFIB Medications and Allergies Home Medications Medication Instructions Recorded Confirmed Type Vit C/Ascorb Sod/Multivit-Min 1,000 mg PO DAILY 04/24/20 07/01/21 History [Emergen-C 500 mg Chewable Tab] Allergies Allergy/AdvReac Type Severity Reaction Status Date / Time No Known Allergies Allergy Verified 07/01/21 15:35 Exam Vital Signs Temp Pulse Resp BP Pulse Ox 07/01/21 15:36 98.0 F 52 L 12 117/61 98 Intake and Output 07/01/21 07/01/21 07/01/21 06:59 14:59 22:59 Other: Weight 79.379 kg Height 5 feet 8 inches, weight 175 pounds, BMI 26.6. This is a well-developed well-nourished white female who is alert and oriented times 3 in no acute distress. HEENT: Within normal limits. NECK: Supple without mass or thyromegaly. CHEST AND LUNGS: Clear to auscultation. HEART: Regular rate and rhythm. BREASTS: Are without mass or discharge. AXILLARY EXAM: Negative for adenopathy. BACK: Negative for CVA tenderness. ABDOMEN: Soft, nontender, without palpable masses. PELVIC EXAM: Normal external genitalia. Cervix and vagina appear normal. There is no significant genital atrophy noted. There is no unusual discharge. There is no evidence of prolapse. The uterus is midposition, nongravid size and nontender. There are no palpable adnexal masses or tenderness. RECTAL EXAM: Rectovaginal exam is negative for mass or tenderness and is negative for occult blood. EXTREMITIES: Nontender. IMPRESSION: 1. 51-year-old perimenopausal female who is status post endometrial ablation with resulting amenorrhea, with normal gynecologic exam. 2. Mild vasomotor symptoms related to early menopausal change. 3. Prior Pap smear in 2019 showing ASCUS with negative high-risk HPV testing. 4. History of colon cancer. PLAN: 1. Pap smear cotest was performed. 2. Self breast awareness was discussed with the patient. We have also discussed symptoms associated with inflammatory breast cancer. 3. Screening mammogram was done today. 4. Osteoporosis prevention was discussed. I have stressed the importance of adequate calcium, vitamin D and regular exercise. Recommended amounts of calcium and vitamin D were also discussed. 5. We have had a discussion regarding premenopausal symptoms and changes that can occur. Suggestions were given regarding her vasomotor symptoms. She was instructed to call if they become more severe if she thinks intervention is necessary. 6. She was advised to return in one year for her annual well woman exam and as needed.
--- NOTE | 2021-07-03 13:32 | MM ---
Reason for exam: screening (asymptomatic). Last mammogram was performed 1 year and 2 months ago. History: Patient is postmenopausal and has history of colon cancer at age 32. Family history of breast cancer in grandmother. Benign MG stereo VAD BX RT of the right breast, September 16, 2017. Physical Findings: A clinical breast exam by your physician is recommended on an annual basis and results should be correlated with mammographic findings. MG 3D Screening Mammo W/Cad Bilateral CC and MLO view(s) were taken. Prior study comparison: April 24, 2020, bilateral MG 3d screening mammo w/cad. November 23, 2018, bilateral MG 3d diag mammo w/cad DAVID. The breast tissue is heterogeneously dense. This may lower the sensitivity of mammography. Previous mammotome biopsy in the right breast. There is chronic nodularity in the right breast. No significant changes when compared with prior studies. ASSESSMENT: Benign, BI-RAD 2 RECOMMENDATION: Routine screening mammogram of both breasts in 1 year.
== END | disposition home or self-care (01) ==
LOC: WWCWWP 15:11
PROVIDERS: ATTEND Obstetrics & Gynecology
DX: Z12.31 Encounter for screening mammogram for malignant neoplasm of breast (principal); N91.2 Amenorrhea, unspecified; Z85.038 Personal history of other malignant neoplasm of large intestine
CPT/HCPCS: 77063; 77067

== ENCOUNTER → 2022-07-21 | Outpatient (CLI) | payer OTHER ==
[2022-07-21 08:12] VITALS: BP 102/59; PULSE 96; RESP 17; TEMP 97.5
--- NOTE | 2022-07-21 08:47 | P.HPOB ---
History of Present Illness H&P Date: 07/21/22 Chief Complaint: The patient is here for her routine gynecologic exam and ma mmogram. This is a 52-year-old with an LMP of October 2019. She has been amenorrheic since her endometrial ablation in October 2019. She has experienced more hot flashes this past year and they were bad at times. She states she has taken a probiotic which seems to help with the hot flashes. She is otherwise without gynecologic complaints. Review of Systems The patient has gained 7 pounds over the last year. She denies respiratory, cardiac, or G.I. problems. Past Medical History Past Medical History: Cancer, Hyperlipidemia Additional Past Medical History / Comment(s): HX OF COLON CANCER (2002). Carotid stenosis. 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 History of Any Multi-Drug Resistant Organisms: None Reported Past Surgical History: Bowel Resection, Uterine Ablation Additional Past Surgical History / Comment(s): Colonoscopy 2018(next after 3yr). Endometrial ablation in 2019. Past Anesthesia/Blood Transfusion Reactions: No Reported Reaction Past Psychological History: No Psychological Hx Reported Smoking Status: Never smoker Past Alcohol Use History: Occasional (4 per week) Past Drug Use History: None Reported Additional History: She is . She has been with her boyfriend since 2012 and they live together. She has a new job with a [employer] and travels a lot. She is currently not very satisfied with her job. - Past Family History Mother Family Medical History: No Reported History Additional Family Medical History / Comment(s): Grandmother had breast cancer. Father Family Medical History: AFIB Medications and Allergies Home Medications Medication Instructions Recorded Confirmed Type Vit C/Ascorb Sod/Multivit-Min 1,000 mg PO DAILY 04/24/20 07/21/22 History [Emergen-C 500 mg Chewable Tab] Aspirin [Children's Aspirin] 81 mg PO DAILY 07/21/22 07/21/22 History L.acidoph,Paracasei, B.lactis 2 cap PO DAILY 07/21/22 07/21/22 History [Probiotic] Omeprazole [PriLOSEC] 10 mg PO DIRECTED PRN 07/21/22 07/21/22 History Allergies Allergy/AdvReac Type Severity Reaction Status Date / Time No Known Allergies Allergy Verified 07/21/22 08:06 Exam Vital Signs Temp Pulse Resp BP Pulse Ox 07/21/22 08:09 97.5 F L 96 17 102/59 96 Intake and Output 07/20/22 07/21/22 07/21/22 22:59 06:59 14:59 Other: Weight 82.554 kg Height 5 feet 8 inches, weight 182 pounds, BMI 27.7. This is a well-developed well-nourished white female who is alert and oriented times 3 in no acute distress. HEENT: Within normal limits. NECK: Supple without mass or thyromegaly. CHEST AND LUNGS: Clear to auscultation. HEART: Regular rate and rhythm. BREASTS: Are without mass or discharge. There is a benign-appearing mole on the right areola at approximately the 2 o'clock position and it measures approximately 3 mm. The patient states it has been there for many years and has not changed. AXILLARY EXAM: Negative for adenopathy. BACK: Negative for CVA tenderness. ABDOMEN: Soft, nontender, without palpable masses. PELVIC EXAM: Normal external genitalia. Cervix and vagina appear normal. There is no unusual discharge. There is no evidence of prolapse. The uterus is midposition, nongravid size and nontender. There are no palpable adnexal masses or tenderness. RECTAL EXAM: Rectovaginal exam is negative for mass or tenderness and is negative for occult blood. EXTREMITIES: Nontender. IMPRESSION: 1. 52-year-old premenopausal female with amenorrhea since her endometrial ablation in October 2019. Normal gynecologic exam. 2. Moderate vasomotor symptoms which the patient states has improved with probiotics. 3. Previous Pap smear showing ASCUS with negative high-risk HPV testing in 2020 and 2018. 4. History of colon cancer. PLAN: 1. Pap smear, test was performed. 2. Self breast awareness was discussed with the patient. We have also discussed symptoms associated with inflammatory breast cancer. 3. Screening mammogram will be done today. 4. Osteoporosis prevention was discussed. I have stressed the importance of adequate calcium, vitamin D and regular exercise. Recommended amounts of calcium and vitamin D were also discussed. 5. She is due for a colonoscopy since she has them done every 3 years as of her colon cancer. She will schedule this with Dr. Euceda, her GI doctor who has done colonoscopies on her. 6. She has not received a Covid vaccination. I recommended that she look into getting vaccinated. She states she has had a Covid in the past and is declining vaccination. 7. She was advised to return in one year for her annual well woman exam.
--- NOTE | 2022-07-22 20:36 | MM ---
Reason for Exam: Screening (asymptomatic). Last mammogram was performed 1 year(s) and 1 month(s) ago. Patient History: Menarche at age 14. First Full-Term at age 31. Postmenopausal. Colorectal cancer, age 32. 09/16/2017, Benign Core Biopsy on the right side. Maternal grandmother had breast cancer. Risk Values: Chelsey 5 year model risk: 1.3%. NCI Lifetime model risk: 11.6%. Prior Study Comparison: 11/23/2018 Bilateral Diagnostic Mammogram, [facility]. 04/24/2020 Bilateral Screening Mammogram, [facility]. 07/01/2021 Bilateral Screening Mammogram, [facility]. Tissue Density: The breast tissue is heterogeneously dense. This may lower the sensitivity of mammography. Findings: Analyzed By CAD. Microclip associated with the dominant chronic nodule 12:00 posterior right breast. Just below, centrally posterior right MLO view, there is a nodular area of asymmetric density which incompletely disperses on 3-D images and appears more defined. Further evaluation recommended. Otherwise, no significant change. Overall Assessment: Incomplete: need additional imaging evaluation, BI-RAD 0 Management: Special View Mammogram of the right breast. To include spot 3-D MLO and 3-D lateral views. Additional 3-D CC rolled view. Targeted ultrasound of any persisting abnormality. [facility] will attempt to contact patient to return for supplemental views and ultrasound if indicated. Electronically signed and approved by: Ghislaine Alberto M.D. Radiologist
== END | disposition home or self-care (01) ==
LOC: WWCWWP 07:59
PROVIDERS: ATTEND Obstetrics & Gynecology
DX: Z12.31 Encounter for screening mammogram for malignant neoplasm of breast (principal)
CPT/HCPCS: 77063; 77067

== ENCOUNTER → 2022-07-31 | Outpatient (CLI) | payer OTHER ==
--- NOTE | 2022-07-31 14:11 | MM ---
Reason for Exam: Additional evaluation requested from abnormal screening. Last screening mammogram was performed less than 1 month ago. Patient History: Menarche at age 14. First Full-Term at age 31. Postmenopausal. Patient has history of breast feeding. Colorectal cancer, age 32. 09/16/2017, Benign Core Biopsy on the right side. Maternal grandmother had breast cancer, age 73. Risk Values: Chelsey 5 year model risk: 1.3%. NCI Lifetime model risk: 11.6%. Prior Study Comparison: 11/23/2018 Bilateral Diagnostic Mammogram, [facility]. 04/24/2020 Bilateral Screening Mammogram, [facility]. 07/01/2021 Bilateral Screening Mammogram, [facility]. 07/21/2022 Bilateral MG 3D screening mammo w/cad, [facility]. Tissue Density: Right: The breast tissue is heterogeneously dense. This may lower the sensitivity of mammography. Findings: Analyzed By CAD. Area of concern seen within the right breast middle depth correlates with fibroglandular tissue with summation artifact. No suspicious masses, consultations or distortions. Overall Assessment: Benign, BI-RAD 2 Management: Screening Mammogram of both breasts in 1 year. A clinical breast exam by your physician is recommended on an annual basis and results should be correlated with mammographic findings. This exam should not preclude additional follow-up of suspicious palpable abnormalities. Results were given to the patient verbally at the time of exam. Electronically signed and approved by: Xavier Cho DO
== END | disposition home or self-care (01) ==
LOC: RADMAMWWP 13:30
PROVIDERS: ATTEND Obstetrics & Gynecology
DX: R92.8 Other abnormal and inconclusive findings on diagnostic imaging of breast (principal)
CPT/HCPCS: 77061; 77065

== ENCOUNTER 2022-08-28 12:28 | Day surgery (SDC) | payer OTHER ==
[~2022-08-28 12:28] MED LIST changes: -DEXAMETHASONE SOD PHOSPHATE 10 MG/ML 1 ML VIAL IV ONE; -HYDROmorphone 0.5 MG/0.5 ML SYRINGE IVP PRN; -MIDAZOLAM 2 MG/2 ML VIAL IV PRN; -ONDANSETRON 4 MG/2 ML VIAL IVP ONE; -Pre Op ABX Message 1 EACH MISC MISCELLANE ONE; -SCOPOLAMINE 1.5MG/72HR PATCH TRANSDERM ONE
[2022-08-28 13:52] VITALS: RESP 16; TEMP 97.9
[2022-08-28] MEDS ORDERED: LIDOCAINE 1% (10MG/ML) FOR IV START INTRADERMA ONE (13:52)
[2022-08-28] MEDS ORDERED: PROPOFOL 10 MG/ML 20 ML VIAL IV ONE (14:38)
--- NOTE | 2022-08-28 14:55 | P.PCN ---
Date of Procedure: 08/28/22 Procedure(s) Performed: BRIEF HISTORY: Patient is a 52-year-old pleasant white female scheduled for an elective colonoscopy as a part of surveillance of prior history of colon cancer diagnosed at age 31.her last colonoscopy was 3 years ago. PROCEDURE PERFORMED: Colonoscopy. PREOPERATIVE DIAGNOSIS: history of colon cancer diagnosed at age 31. IV sedation per Anesthesia. PROCEDURE: After informed consent was obtained, the patient, was brought into the endoscopy unit. IV sedation was administered by Anesthesia under continuous monitoring. Digital rectal examination was normal. Initially the Olympus CF-160 flexible video colonoscope was then inserted in the rectum, gradually advanced into the cecum without any difficulty. Careful examination was performed as the scope was gradually being withdrawn. Ileocecal valve and the appendiceal orifice were visualized and appeared normal. Prep was excellent. Mucosa of the cecum, ascending colon, transverse colon, descending colon, and rectum appeared normal. s\Surgical anastomosis was located at 20 cm from the anal verge that appeared normal.Retroflexion was performed in the rectum and no lesions were seen. The patient tolerated the procedure well. IMPRESSION: Normal-appearing colon from rectum to cecumno evidence of colorectal neoplasia . RECOMMENDATIONS: Findings of this examination were discussed with the patient as well as a family. She was advised to have a repeat colonoscopy in 3 years..
[2022-08-28 15:44] VITALS: BP 124/72; PULSE 72
== END 2022-08-28 15:30 | disposition home or self-care (01) ==
LOC: ORWHC2ENDO 12:28
PROVIDERS: ATTEND Internal Medicine Gastroenterology
DX: Z12.11 Encounter for screening for malignant neoplasm of colon (principal); K21.9 Gastro-esophageal reflux disease without esophagitis; Z86.010 Personal history of colon polyps; Z79.899 Other long term (current) drug therapy
CPT/HCPCS: 81025; 45378; J2704

== ENCOUNTER → 2023-08-03 | Outpatient (CLI) | payer OTHER ==
[2023-08-03 08:17] VITALS: BP 116/69; PULSE 55; RESP 16; TEMP 98.3
--- NOTE | 2023-08-03 08:41 | P.HPOB ---
History of Present Illness H&P Date: 08/03/23 Chief Complaint: The patient is here for her routine gynecologic exam and ma mmogram. This is a 53-year-old with an LMP of 2019. The patient has been amenorrheic since her endometrial ablation in 2019. She continues to have hot flashes and this has gone on for about 2 years. She is otherwise without gynecologic complaints. She denies any vaginal bleeding. Review of Systems She is getting about 2 pounds over the past year. Respiratory: Occasional exercise-induced asthma symptoms and now uses an inhaler. She denies cardiac or GI problems. Past Medical History Past Medical History: Asthma, Cancer, Hyperlipidemia Additional Past Medical History / Comment(s): HX OF COLON CANCER (2002). Carotid stenosis. 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 History of Any Multi-Drug Resistant Organisms: None Reported Past Surgical History: Bowel Resection, Uterine Ablation Additional Past Surgical History / Comment(s): Colonoscopy 2021(next after 3yr). Endometrial ablation in 2019. Past Anesthesia/Blood Transfusion Reactions: No Reported Reaction Additional Past Anesthesia/Blood Transfusion Reaction / Comment(s): no blood transfusions Past Psychological History: No Psychological Hx Reported Smoking Status: Never smoker Past Alcohol Use History: Occasional (2 drinks per week.) Past Drug Use History: None Reported Additional History: She is . She has been with her boyfriend since 2012 and they are engaged to be . They live together. She has a job with a [employer] company. - Past Family History Mother Family Medical History: No Reported History Additional Family Medical History / Comment(s): Grandmother had breast cancer. Father Family Medical History: AFIB, Cancer Additional Family Medical History / Comment(s): prostate cancer Medications and Allergies Home Medications Medication Instructions Recorded Confirmed Type Aspirin [Children's Aspirin] 81 mg PO DAILY 07/21/22 08/28/22 History L.acidoph,Paracasei, B.lactis 2 cap PO DAILY 07/21/22 08/28/22 History [Probiotic] Omeprazole [PriLOSEC] 10 mg PO DIRECTED PRN 07/21/22 08/28/22 History Mv-Min/Vit C/Glut/Lysine/Hc124 1 tablet PO DAILY 08/27/22 08/28/22 History [Airborne Tablet Chewable] Unk Vitamin D 1 tab PO DAILY 08/27/22 08/28/22 History Allergies Allergy/AdvReac Type Severity Reaction Status Date / Time No Known Allergies Allergy Verified 08/03/23 08:04 Exam Vital Signs Temp Pulse Resp BP Pulse Ox 08/03/23 08:06 98.3 F 55 L 16 116/69 100 Intake and Output 08/02/23 08/03/23 08/03/23 22:59 06:59 14:59 Other: Weight 83.461 kg Height 5 feet 8 inches, weight 184 pounds, BMI 28.0. This is a well-developed well-nourished white female who is alert and oriented times 3 in no acute distress. HEENT: Within normal limits. NECK: Supple without mass or thyromegaly. CHEST AND LUNGS: Clear to auscultation. HEART: Regular rate and rhythm. BREASTS: Are without mass or discharge. AXILLARY EXAM: Negative for adenopathy. BACK: Negative for CVA tenderness. ABDOMEN: Soft, nontender, without palpable masses. PELVIC EXAM: Normal external genitalia with minimal atrophy. Cervix and vagina appear normal. There is no unusual discharge. There is no evidence of prolapse. The uterus is midposition, nongravid size and nontender. There are no palpable adnexal masses or tenderness. RECTAL EXAM: Rectovaginal exam is negative for mass or tenderness and is negative for occult blood. EXTREMITIES: Nontender. IMPRESSION: 1. 53-year-old perimenopausal female with vasomotor symptoms, with normal gynecologic exam. 2. Amenorrhea since her 2020 ablation. 3. 2 previous ASCUS Pap smears with negative high-risk HPV testing followed by a negative Pap smear cotest in 2021. PLAN: 1. Pap smear cotest was performed. 2. Self breast awareness was discussed with the patient. We have also discussed symptoms associated with inflammatory breast cancer. 3. Screening mammogram will be done today. 4. Osteoporosis prevention was discussed. I have stressed the importance of adequate calcium, vitamin D and regular exercise. Recommended amounts of calcium and vitamin D were also discussed. 5. She was advised to return in one year for her annual well woman exam.
--- NOTE | 2023-08-04 15:54 | MM ---
Reason for Exam: Screening (asymptomatic). Last screening mammogram was performed 12 month(s) ago. Patient History: Menarche at age 14. First Full-Term at age 31. Postmenopausal. Patient has history of breast feeding. Colorectal cancer, age 32. 09/16/2017, Benign Core Biopsy on the right side. Maternal grandmother had breast cancer, age 73. Risk Values: Chelsey 5 year model risk: 1.3%. NCI Lifetime model risk: 11.4%. Prior Study Comparison: 08/25/2017 Bilateral Screening Mammogram, [facility]. 09/10/2017 Right Diagnostic Mammogram, [facility]. 11/23/2018 Bilateral Diagnostic Mammogram, [facility]. 04/24/2020 Bilateral Screening Mammogram, [facility]. 07/01/2021 Bilateral Screening Mammogram, [facility]. 07/21/2022 Bilateral MG 3D screening mammo w/cad, [facility]. 07/31/2022 Right MG 3D work up w/cad RT, [facility]. Tissue Density: The breast tissue is heterogeneously dense. This may lower the sensitivity of mammography. Findings: Analyzed By CAD. Pattern appears symmetrical and stable. A rounded density appears stable right breast with an adjacent core marker. No significant interval changes are evident. No suspicious groups of microcalcifications, spiculated or lobular masses, architectural distortion or other secondary signs of malignancy are mammographically apparent. Overall Assessment: Benign, BI-RAD 2 Management: Screening Mammogram of both breasts in 1 year. A negative mammogram report should not preclude additional follow up of suspicious palpable abnormalities. Patient should continue monthly self breast exam. A clinical breast exam by your physician is recommended on an annual basis and results should be correlated with mammographic findings. Electronically signed and approved by: Farhan Estrada D.O. Radiologis
== END ==
LOC: WWCWWP 07:54
PROVIDERS: ATTEND Obstetrics & Gynecology
DX: Z12.31 Encounter for screening mammogram for malignant neoplasm of breast (principal); N91.2 Amenorrhea, unspecified; I35.8 Other nonrheumatic aortic valve disorders; J45.909 Unspecified asthma, uncomplicated; E78.5 Hyperlipidemia, unspecified; Z80.3 Family history of malignant neoplasm of breast; Z78.0 Asymptomatic menopausal state; Z79.82 Long term (current) use of aspirin
CPT/HCPCS: 77063; 77067

== ENCOUNTER → 2024-08-08 | Outpatient (CLI) | payer OTHER ==
[2024-08-08 11:25] VITALS: BP 122/75; PULSE 61; RESP 16; TEMP 98.3
--- NOTE | 2024-08-08 12:04 | P.HPOB ---
History of Present Illness H&P Date: 08/08/24 Chief Complaint: The patient is here for her routine gynecologic exam and ma mmogram. This is a 54-year-old with an LMP of 2019. The patient has been amenorrheic since her endometrial ablation in 2019. She has been having hot flashes for about 3 years. She states they are improving slightly and she does have less night sweats and is sleeping better. She is without gynecologic complaints and denies any vaginal bleeding. Review of Systems She has gained about 5 pounds over the past year. Respiratory: She is getting over a cold and sinus issues. She denies cardiac or GI problems. Past Medical History Past Medical History: Asthma, Cancer, Hyperlipidemia Additional Past Medical History / Comment(s): HX OF COLON CANCER (2002). Carotid stenosis. 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 History of Any Multi-Drug Resistant Organisms: None Reported Past Surgical History: Bowel Resection, Uterine Ablation Additional Past Surgical History / Comment(s): Colonoscopy 2021(next after 3yr). Endometrial ablation in 2019. Past Anesthesia/Blood Transfusion Reactions: No Reported Reaction Additional Past Anesthesia/Blood Transfusion Reaction / Comment(s): no blood t ransfusions Past Psychological History: No Psychological Hx Reported Smoking Status: Never smoker Past Alcohol Use History: Occasional (About 2 drinks per week.) Past Drug Use History: None Reported Additional History: She is . She has been with her partner since 2012 and they live together. She has a job with a [employer] company. - Past Family History Mother Family Medical History: No Reported History Additional Family Medical History / Comment(s): Grandmother had breast cancer. Father Family Medical History: AFIB, Cancer Additional Family Medical History / Comment(s): prostate cancer Medications and Allergies Home Medications Medication Instructions Recorded Confirmed Type Aspirin [Children's Aspirin] 81 mg PO DAILY 07/21/22 08/08/24 History L.acidoph,Paracasei, B.lactis 2 cap PO DAILY 07/21/22 08/08/24 History [Probiotic] Omeprazole [PriLOSEC] 10 mg PO DIRECTED PRN 07/21/22 08/08/24 History Mv-Min/Vit C/Glut/Lysine/Hc124 1 tablet PO DAILY 08/27/22 08/08/24 History [Airborne Tablet Chewable] Unk Vitamin D 1 tab PO DAILY 08/27/22 08/08/24 History Allergies Allergy/AdvReac Type Severity Reaction Status Date / Time No Known Allergies Allergy Verified 08/08/24 11:21 Exam Vital Signs Temp Pulse Resp BP Pulse Ox 08/08/24 11:21 98.3 F 61 16 122/75 100 Intake and Output 08/07/24 08/08/24 08/08/24 22:59 06:59 14:59 Other: Weight 85.729 kg Height 5 feet 8 inches, weight 189 pounds, BMI 28.7. This is a well-developed well-nourished white female who is alert and oriented times 3 in no acute distress. HEENT: Within normal limits. NECK: Supple without thyromegaly. There is a left palpable lymph node in the neck measuring approximately 2 x 1.5 cm. It is rubbery and nontender. The patient states she is currently undergoing a workup for this. CHEST AND LUNGS: Clear to auscultation. HEART: Regular rate and rhythm. BREASTS: Are without mass or discharge. There is a small mole on the right areola at the 1 o'clock position and measures about 4 x 3 mm. This has been there for many years and she does have her touch up edger checked this out on a regular basis. AXILLARY EXAM: Negative for adenopathy. BACK: Negative for CVA tenderness. ABDOMEN: Soft, nontender, without palpable masses. PELVIC EXAM: Normal external genitalia with minimal atrophy. Cervix and vagina appear normal with minimal atrophy. There is no unusual discharge. There is no evidence of prolapse. The uterus is midposition, nongravid size and nontender. There are no palpable adnexal masses or tenderness. RECTAL EXAM: Rectovaginal exam is negative for mass or tenderness and is negative for occult blood. EXTREMITIES: Nontender. IMPRESSION: 1. 54-year-old probable menopausal female with normal gynecologic exam and improving vasomotor symptoms. 2. Amenorrhea since her endometrial ablation in 2019. 3. History of colon cancer in 2002. PLAN: 1. Pap smear was deferred since she had a negative Pap smear cotest on 08/03. We will plan on repeating this after about 4 to 5 years. 2. Self breast awareness was discussed with the patient. We have also discussed symptoms associated with inflammatory breast cancer. 3. Screening mammogram will be done today. 4. Osteoporosis prevention was discussed. I have stressed the importance of adequate calcium, vitamin D and regular exercise. Recommended amounts of calc ium and vitamin D were also discussed. 5. She was advised to return in one year for her annual well woman exam.
--- NOTE | 2024-08-09 12:29 | MM ---
Reason for Exam: Screening (asymptomatic). Last screening mammogram was performed 12 month(s) ago. Patient History: Menarche at age 14. First Full-Term at age 31. Postmenopausal. Patient has history of breast feeding. Colorectal cancer, age 32. 09/16/2017, Benign Core Biopsy on the right side. Maternal grandmother had breast cancer, age 73. Risk Values: Chelsey 5 year model risk: 1.4%. NCI Lifetime model risk: 11.2%. Prior Study Comparison: 07/21/2022 Bilateral MG 3D screening mammo w/cad, [facility]. 07/31/2022 Right MG 3D work up w/cad RT, [facility]. 08/03/2023 Bilateral MG 3D screening mammo w/cad, [facility]. Tissue Density: The breasts are heterogeneously dense, which may obscure small masses. Findings: Analyzed By CAD. Asymmetric densities lateral left CC view middle to posterior depth appear more defined and incompletely dispersed on 3-D images. Further evaluation is recommended. Chronic nodularity on the right with adjacent microclip from prior biopsy. Otherwise, no significant change. Overall Assessment: Incomplete: need additional imaging evaluation, BI-RAD 0 Management: Special View Mammogram of the left breast. Diagnostic Breast Ultrasound of the left breast. Additional views to include spot 3-D CC, 3-D CC rolled, spot 3-D MLO, and 3-D ML views. Targeted left breast ultrasound. [facility] will attempt to contact patient to return for supplemental views and ultrasound if indicated. [facility], , 08/09/2024 12:25 PM. Electronically signed and approved by: Ghislaine Alberto M.D. Radiologist
== END ==
LOC: WWCWWP 11:07
PROVIDERS: ATTEND Obstetrics & Gynecology
CPT/HCPCS: 77063; 77067

== ENCOUNTER → 2024-08-14 | Outpatient (CLI) | payer OTHER ==
--- NOTE | 2024-08-14 15:04 | MM ---
Reason for Exam: Additional evaluation requested from abnormal screening. Last screening mammogram was performed less than 1 month ago. Patient History: Menarche at age 14. First Full-Term at age 31. Postmenopausal. Patient has history of breast feeding. Colorectal cancer, age 32. 09/16/2017, Benign Core Biopsy on the right side. Maternal grandmother had breast cancer, age 73. Risk Values: Chelsey 5 year model risk: 1.4%. NCI Lifetime model risk: 11.2%. Prior Study Comparison: 07/31/2022 Right MG 3D work up w/cad RT, [facility]. 08/03/2023 Bilateral MG 3D screening mammo w/cad, [facility]. 08/08/2024 Bilateral MG 3D screening mammo w/cad, [facility]. Tissue Density: Left: The breasts are heterogeneously dense, which may obscure small masses. Findings: Analyzed By CAD. There is some persistent left breast nodularity within the upper middle position approximately 1:00 location located 6 cm the nipple this is persistent impression. Additional evaluation with ultrasound is recommended. Overall Assessment: Incomplete: need additional imaging evaluation, BI-RAD 0 Management: Diagnostic Breast Ultrasound of the left breast. A negative mammogram report should not preclude additional follow up of suspicious palpable abnormalities. Patient should continue monthly self breast exam. A clinical breast exam by your physician is recommended on an annual basis and results should be correlated with mammographic findings. Note on Cehlsey scores and lifetime risk: 1. A Chelsey score greater than 3% is considered moderate risk. If this is the case, consider specialist referral to assess eligibility for a risk reducing agent. 2. If overall lifetime risk for the development of breast cancer is 20% or higher, the patient may qualify for future screening with alternating mammogram and breast MRI. [facility], , 08/14/2024 2:43 PM. Electronically signed and approved by: Farhan Estrada D.O. Radiologis
--- NOTE | 2024-08-14 15:21 | USB ---
Reason for Exam: Additional evaluation requested from abnormal screening. Patient History: Menarche at age 14. First Full-Term at age 31. Postmenopausal. Patient has history of breast feeding. Colorectal cancer, age 32. 09/16/2017, Benign Core Biopsy on the right side. Maternal grandmother had breast cancer, age 73. Risk Values: Chelsey 5 year model risk: 1.4%. NCI Lifetime model risk: 11.2%. Technique: Method: Targeted. Prior Study Comparison: 07/31/2022 Right MG 3D work up w/cad RT, [facility]. 08/03/2023 Bilateral MG 3D screening mammo w/cad, [facility]. 08/08/2024 Bilateral MG 3D screening mammo w/cad, [facility]. Findings: The upper outer quadrant of the left breast, the axilla of the left breast and the retroareolar of the left breast were scanned. There is a grouping of cysts present at 3:00 position 6 cm nipple. This appears to correlate with the mammographic findings. This measures 1.5 x 0.4 x 1.1 cm. This has good through transmission and posterior wall enhancement.. Overall Assessment: Probably benign, BI-RAD 3 Management: Diagnostic Mammogram of the left breast in 6 months. Diagnostic Breast Ultrasound of the left breast in 6 months. A clinical breast exam by your physician is recommended on an annual basis and results should be correlated with mammographic findings. This exam should not preclude additional follow-up of suspicious palpable abnormalities. Results were given to the patient verbally at the time of exam. [facility], , 08/14/2024 3:06 PM. Electronically signed and approved by: Farhan Estrada D.O. Radiologis
--- NOTE | 2024-08-15 17:32 | P.PN ---
Progress Note - Text Progress Note Date: 08/15/24 OUTPATIENT FOLLOW-UP NOTE TEST(S)/RESULTS: Screening mammogram done on 08/08/2024 was incomplete. A left breast workup including left diagnostic mammogram and left breast ultrasound were done on 08/14/2024 which were probably benign. A 6-month diagnostic left mammogram and left breast ultrasound were recommended. METHOD OF NOTIFICATION: The patient was notified by the radiology department at the time of her left breast workup. PATIENT COMMENTS: DIAGNOSIS: Probably benign mammogram with left breast workup. DISCUSSION: The order slip for a diagnostic left mammogram and left breast ultrasound to be done at the end of January 2025 will be mailed to the patient. PLAN: As above.
== END | disposition home or self-care (01) ==
LOC: RADMAMWWP 14:16
PROVIDERS: ATTEND Obstetrics & Gynecology
DX: R92.8 Other abnormal and inconclusive findings on diagnostic imaging of breast (principal); R92.333 Mammographic heterogeneous density, bilateral breasts; Z78.0 Asymptomatic menopausal state; Z80.3 Family history of malignant neoplasm of breast
CPT/HCPCS: 77061; 77065

== ENCOUNTER → 2024-08-18 | Outpatient (CLI) | payer OTHER ==
--- NOTE | 2024-08-20 14:55 | CT ---
EXAMINATION TYPE: CT soft tissue neck w con DATE OF EXAM: 08/18/2024 7:16 AM COMPARISON: None. CLINICAL INDICATION: Female, 54 years old with history of R22.1 Localized swelling,mass and lump,neck , enlarges lymph nodes on both sides of neck., TECHNIQUE: Axial CT was performed with sagittal and coronal reformats. IV CONTRAST: with IV Contrast, patient injected with 100ml mL of Isovue 300. (None if empty) CT DLP: 456.5 mGycm, Automated exposure control for dose reduction was used. FINDINGS: AIRWAY: The supraglottic, glottic, and subglottic portions of the airway appear patent and free of mass. SALIVARY GLANDS: The submandibular and parotid glands are free of mass or inflammatory process. THYROID GLAND: No nodules or masses seen. LYMPH NODES: No adenopathy seen greater than 1cm. LUNG APICES: No nodule or mass is seen. OTHER: Vascular structures are patent. No significant degenerative change of the cervical spine. N o abscess seen. IMPRESSION: There are a few subcentimeter internal jugular chain lymph nodes seen bilaterally which appears patho logic utilizing CT size criteria or morphology. [facility], , 08/20/2024 2:52 PM
== END | disposition home or self-care (01) ==
LOC: RADCTMAIN 06:46
PROVIDERS: ATTEND Family Medicine
DX: R22.1 Localized swelling, mass and lump, neck (principal)
CPT/HCPCS: 70491; Q9967

== ENCOUNTER → 2025-03-23 | Outpatient (CLI) | payer BC ==
--- NOTE | 2025-03-23 08:04 | USB ---
Reason for Exam: Follow-up at short interval from prior study. Patient History: Menarche at age 14. First Full-Term at age 31. Postmenopausal. Patient has history of breast feeding. Colorectal cancer, age 32. 09/16/2017, Benign Core Biopsy on the right side. Maternal grandmother had breast cancer, age 73. Risk Values: Chelsey 5 year model risk: 1.4%. NCI Lifetime model risk: 11.0%. Technique: Method: Targeted. Prior Study Comparison: 08/03/2023 Bilateral MG 3D screening mammo w/cad, [facility]. 08/08/2024 Bilateral MG 3D screening mammo w/cad, [facility]. 08/14/2024 Left MG 3D work up w/cad , [facility]. Findings: The upper outer quadrant of the left breast, the axilla of the left breast and the retroareolar of the left breast were scanned. A US of upper outer quadrant of the left breast, axilla and retro-areolar region were reviewed. A grouping of cysts at 3:00 position of the left breast. Stable in size. Mild duct dilation stable. Overall Assessment: Probably benign, BI-RAD 3 Management: Screening Mammogram of both breasts in 6 months. A clinical breast exam by your physician is recommended on an annual basis and results should be correlated with mammographic findings. This exam should not preclude additional follow-up of suspicious palpable abnormalities. Results were given to the patient verbally at the time of exam. [facility], , 03/23/2025 8:01 AM. Electronically signed and approved by: Suresh Aguirre M.D. Radiologis
== END | disposition home or self-care (01) ==
LOC: RADUSWWP 07:30
PROVIDERS: ATTEND Obstetrics & Gynecology
DX: R92.8 Other abnormal and inconclusive findings on diagnostic imaging of breast (principal); Z78.0 Asymptomatic menopausal state; Z80.3 Family history of malignant neoplasm of breast